=== PATIENT | female | born 1995 | race Two or more races ===

== ENCOUNTER 2016-11-20 19:25 | Outpatient (CLI) | payer MEDICAID ==
--- NOTE | 2016-11-20 20:01 | L&D Flow Sheet ---
LD Flowsheet Datetime Report Generated by CPN: 11/20/2016 20:00 Datetime: 11/20/2016 19:57 Vaginal Exam Dilatation (cm): 0.5 (Martha Maki RN) Effacement (%): 25 (Martha Maki, RN) Station: -2 (Martha Maki RN) Exam by: C Fore RN (Martha Maki RN) Datetime: 11/20/2016 19:50 Vital Signs NBP Sys/Aliza/Mean (mmHg): 123 (QS system process) : 71 (QS system process) : 92 (QS system process) Pulse: 92 (QS system process)
[2016-11-20 20:02] LABS: APPEARANCE,URINE SLIGHTLY-CLOUDY; BILIRUBIN,URINE NEGATIVE (NEGATIVE); GLUCOSE, URINE NEGATIVE (NEGATIVE); KETONES,URINE NEGATIVE (NEGATIVE); LEUKOCYTE ESTERASE,URINE LARGE (NEGATIVE); NITRITE,URINE NEGATIVE (NEGATIVE); PROTEIN,URINE NEGATIVE (NEGATIVE); UROBILINOGEN,URINE NEGATIVE mg/dL (<2.0)
[2016-11-20 20:25] LABS: URINE BARBITURATES SCREEN NEGATIVE; URINE METHADONE SCREEN NEGATIVE; URINE OPIATES LOW NEGATIVE; URINE PHENCYCLIDINE SCREEN NEGATIVE
[2016-11-20] MEDS ORDERED: BUTALB/ACETAMINOPHEN/CAFFEINE 1 TAB EACH PO ONE (20:36)
[2016-11-20] MEDS ORDERED: BUTALB/ACETAMINOPHEN/CAFFEINE 1 TAB EACH ONE (20:40)
--- NOTE | 2016-11-20 20:50 | Non Stress Test Report ---
Non Stress Test Datetime Report Generated by CPN: 11/20/2016 20:49 DEMOGRAPHIC Test Number: 1 EGA NST: 38.6 INDICATION Indication for Study: Ordered by Provider URINE RESULTS Urine Protein, NST: Negative Urine Ketones - NST: Negative Urine Glucose - NST: Negative Urine Blood - NST: Negative MONITORING Monitor Explained: Monitor Explained; Test Explained; Patient Verbalized Understanding Time on Monitor: 11/20/2016 19:51 Time off Monitor: 11/20/2016 20:30 NST Duration: 39 NST INTERVENTIONS NST Interventions: PO Hydration Physician Notified NST: Dr Celestine BABY A: [id number] BABY A Movement : Present Contraction Frequency : 1 FHR Baseline : 145 Accelerations : 15X15 Decelerations : None Variability : Moderate 6-25bpm NST Review: Meets Criteria for Reactive NST NST Review and Verified By : Mazin Taylor RN NSTsering Results: Reactive NST REPORT Report Trigger: Send Report
--- NOTE | 2016-11-20 22:01 | L&D Flow Sheet ---
LD Flowsheet Datetime Report Generated by CPN: 11/20/2016 22:00 Datetime: 11/20/2016 20:29 Communication Comments: Call placed to Dr Anderson. MENDEZ made aware of pt complaints and pt condition, VS and SVE. Orders received for Fiorcet and discharge to home. Pt to keep appt at health dept tomorrow and f/u. Orders carried out. (Martha Maki RN) Datetime: 11/20/2016 20:17 NBP Sys/Aliza/Mean (mmHg): 108 (QS system process) : 60 (QS system process) : 78 (QS system process) Pulse: 85 (QS system process) LaborFlag: Antepartum (QS system process) Datetime: 11/20/2016 20:01 NBP Sys/Aliza/Mean (mmHg): 119 (QS system process) : 68 (QS system process) : 87 (QS system process) Pulse: 84 (QS system process) LaborFlag: Antepartum (QS system process) Datetime: 11/20/2016 20:00 Level of Consciousness: Fully Conscious (Martha Maki RN) DTR's/Clonus: DTRs 2+; No Clonus (Martha Maki RN) Headache: Denies (Martha Maki RN) Breath Sounds, Left: Clear and Equal (Martha Maki RN) Breath Sounds, Right: Clear and Equal (Martha Maki RN) Nausea/Vomiting: Denies (Martha Maki RN) RUQ Epigastric Pain: Denies (Martha Maki RN)
== END 2016-11-20 20:45 | disposition home or self-care (01) ==
LOC: LC 19:25
PROVIDERS: ATTEND Obstetrics & Gynecology
PROC: 4A1HXCZ Monitoring of Products of Conception, Cardiac Rate, External Approach (ICD-10-PCS; principal; 2016-11-20)
DX: O47.1 False labor at or after 37 completed weeks of gestation (principal); Z3A.38 38 weeks gestation of pregnancy
CPT/HCPCS: 59025; 81005; 80307; J3490